=== PATIENT | female | born 1985 | race Caucasian/White ===

== ENCOUNTER 2017-01-20 21:30 | Emergency (ER) | payer OTHER ==
[2017-01-20 21:34] VITALS: BP 109/54; PULSE 79; TEMP 98; BMI 30.3
[2017-01-20] MEDS ORDERED: ACETAMINOPHEN 325 MG TABLET (FP) PO ONE (23:39)
--- NOTE | 2017-01-20 23:39 | PDOC ---
History of Present Illness <Anna Mckeon - Last Filed: 01/20/17 23:39> - History of Present Illness Initial Comments: 01/20/17 23:46 Patient is a 31 year old female with no significant medical hx who is presenting to the ED with a spider bite that occurred just prior to her arrival. The patient states she was at home in her basement when she witnessed a vargas spider the size of a nickel bite her between the web of her first and second digits of her left foot. Patient reports pain and swelling to the area. Denies rash, erythema, numbness, or itchiness. <Neha Joy - Last Filed: 01/20/17 23:51> - General Chief Complaint: Bite Stated Complaint: BITE Time Seen by Provider: 01/20/17 23:34 Past History - Past Medical History Other medical history: denies - Psycho/Social/Smoking Cessation Hx Suicidal Ideation: No Smoking Status: No Smoking History: Never smoked Number of Cigarettes Smoked Daily: 0 <Anna Mckeon - Last Filed: 01/20/17 23:39> <Neha Joy - Last Filed: 01/20/17 23:51> - Past Medical History Allergies/Adverse Reactions: Allergies Allergy/AdvReac Type Severity Reaction Status Date / Time No Known Allergies Allergy Verified 01/20/17 21:34 Home Medications: Ambulatory Orders Ciprofloxacin [Cipro -] 500 mg PO BID #10 tablet 12/08/11 Review of Systems - Review of Systems Comments:: 01/20/17 23:47 CONSTITUTIONAL: Absent: fever, no chills, no fatigue EYES: Absent: visual changes ENT: Absent: ear pain, no sore throat MUSKULOSKELETAL: Absent: back pain, no arthralgia, no myalgia SKIN: Present: spider bite with pain and swelling between first and second digits of left foot Absent: rash NEURO: Absent: headache <Neha Joy - Last Filed: 01/20/17 23:51> *Physical Exam - Vital Signs Last Vital Signs Temp Pulse Resp BP Pulse Ox 98 F 79 18 109/54 99 01/20/17 21:31 01/20/17 21:31 01/20/17 21:31 01/20/17 21:31 01/20/17 21:31 <Anna Mckeon - Last Filed: 01/20/17 23:39> - Vital Signs Last Vital Signs Temp Pulse Resp BP Pulse Ox 98 F 79 18 109/54 99 01/20/17 21:31 01/20/17 21:31 01/20/17 21:31 01/20/17 21:31 01/20/17 21:31 - Physical Exam Comments: 01/20/17 23:48 GENERAL: Well-appearing, well-nourished. No apparent distress. HEENT: Normocephalic, atraumatic. PERRL, EOM intact. EXTREMITIES: Normal ROM in all four extremities. No gross deformities. SKIN: Mild swelling between first and second digits of the left foot without any erythema or induration. No obvious breaking of skin. Warm, dry. No rash NEUROLOGICAL: No focal neurological deficits. <Neha Joy - Last Filed: 01/20/17 23:51> *DC/Admit/Observation/Transfer <Anna Mckeon - Last Filed: 01/20/17 23:39> - Attestations Scribe Attestion: 01/20/17 23:51 Documentation prepared by Neha Joy, acting as director medical science for Anna Mckeon MD. <Neha Joy - Last Filed: 01/20/17 23:51> Diagnosis at time of Disposition: Spider bite Qualifiers: Encounter type: initial encounter Injury intent: accidental or unintentional Qualified Code(s): T63.301A - Toxic effect of unspecified spider venom, accidental (unintentional), initial encounter - Patient Instructions Printed Discharge Instructions: DI for Insect Bites and Stings Additional Instructions: please keep foot elevated tonight apply ice to the area take tylenol for pain return for any signs of infection
[2017-01-20] MEDS ORDERED: ACETAMINOPHEN 325 MG TABLET (FP) ONE (23:52)
== END 2017-01-20 23:56 | disposition home or self-care (01) ==
LOC: JER 21:30 → JERFT 21:30 → JER 23:56
DX: T63.3 Toxic effect of venom of spider (principal); Y92.89 Other specified places as the place of occurrence of the external cause
CPT/HCPCS: 99281-25

== ENCOUNTER 2018-03-17 20:56 | Emergency (ER) | payer SELFPAY ==
[2018-03-17 21:06] VITALS: BP 108/80; PULSE 95; TEMP 98.1; BMI 29.2
--- NOTE | 2018-03-17 23:21 | PDOC ---
History of Present Illness - General History Source: Patient Exam Limitations: No Limitations - History of Present Illness Initial Comments: 03/17/18 23:20 Lorie is a 32 year old female with h/o PCOS who is getting fertility treatment from [facility] with Clomid c/o lower abd pain since yesterday. States the pain was 10/10 yesterday and could hardly stand up. Today he states the pain is 5/10, crampy type, with no alleviating or aggravating factors. She called her OBS in [place] and he instructed her to come to the ED to r/o ectopic. States she took a home test which was neg. Denies vaginal bleeding, n/v, dysuria. DIRECTOR OF RELIGIOUS LIFE: Dr. James. PMHX: as above PSOCHX: neg etoh, drugs, cig ALL: NKDA GENERAL/CONSTITUTIONAL: [No fever or chills. No weakness. No weight change.] HEAD, EYES, EARS, NOSE AND THROAT: [No change in vision. No ear pain or discharge. No sore throat.] CARDIOVASCULAR: [No chest pain or shortness of breath.] RESPIRATORY: [No cough, wheezing, or hemoptysis.] GASTROINTESTINAL: [No nausea, vomiting, diarrhea or constipation. No rectal bleeding.] GENITOURINARY: [No dysuria, frequency, or change in urination.] MUSCULOSKELETAL: [No joint or muscle swelling or pain. No neck or back pain.] SKIN AND BREASTS: [No rash or easy bruising.] NEUROLOGIC: [No headache, vertigo, loss of consciousness, or loss of sensation.] PSYCHIATRIC: [No depression or anxiety.] ENDOCRINE: [No increased thirst. No abnormal weight change.] HEMATOLOGIC/LYMPHATIC: [No anemia, easy bleeding, or history of blood clots.] ALLERGIC/IMMUNOLOGIC: [No hives or skin allergy. No latex allergy.] GENERAL: [The patient is awake, alert, and fully oriented, in no acute distress. ] HEAD: [Normal with no signs of trauma.] EYES: [Pupils equal, round and reactive to light, extraocular movements intact, sclera anicteric, conjunctiva clear.] ENT: [Ears normal, nares patent, oropharynx clear without exudates. Moist mucous membranes.] NECK: [Normal range of motion, supple without lymphadenopathy, JVD, or masses.] LUNGS: [Breath sounds equal, clear to auscultation bilaterally. No wheezes, and no crackles.] HEART: [Regular rate and rhythm, normal S1 and S2 without murmur, rub.] ABDOMEN: [Soft, mild tenderness lower abd, normoactive bowel sounds. No guarding, no rebound. No masses.] EXTREMITIES: [Normal range of motion, no edema. No clubbing or cyanosis. No cords, erythema, or tenderness.] NEUROLOGICAL: [Cranial nerves II through XII grossly intact. Normal speech, normal gait.] PSYCH: [Normal mood, normal affect.] SKIN: [Warm, Dry, normal turgor, no rashes or lesions noted.] 03/18/18 01:00 <Tee Scott - Last Filed: 03/18/18 01:28> <Johanna Anne - Last Filed: 03/18/18 04:30> - General Chief Complaint: Pain Stated Complaint: ABDOMINAL PAIN Past History - Past Medical History COPD: No Other medical history: PCOS - Reproductive History Polycystic Ovaries: Yes - Suicide/Smoking/Psychosocial Hx Smoking Status: No Smoking History: Never smoked Have you smoked in the past 12 months: No Number of Cigarettes Smoked Daily: 0 Information on smoking cessation initiated: No Hx Alcohol Use: No Drug/Substance Use Hx: No Substance Use Type: None <Tee Scott - Last Filed: 03/18/18 01:28> <Johanna Anne - Last Filed: 03/18/18 04:30> - Past Medical History Allergies/Adverse Reactions: Allergies Allergy/AdvReac Type Severity Reaction Status Date / Time No Known Allergies Allergy Verified 03/17/18 21:06 Home Medications: Ambulatory Orders Ciprofloxacin [Cipro -] 500 mg PO BID #10 tablet 12/08/11 Cephalexin Monohydrate [Keflex -] 500 mg PO BID #14 capsule 01/27/18 Naproxen [Naprosyn -] 500 mg PO BID #14 tablet 01/27/18 Naproxen [Naprosyn -] 500 mg PO BID PRN #14 tablet 01/27/18 Nitrofurantoin Monohyd/M-Cryst [Macrobid -] 100 mg PO BID #14 capsule 03/18/18 *Physical Exam - Vital Signs Last Vital Signs Temp Pulse Resp BP Pulse Ox 98.1 F 95 H 18 108/80 100 03/17/18 21:04 03/17/18 21:04 03/17/18 21:04 03/17/18 21:04 03/17/18 21:04 <HaasCecileTee - Last Filed: 03/18/18 01:28> - Vital Signs Last Vital Signs Temp Pulse Resp BP Pulse Ox 98.1 F 95 H 18 108/80 100 03/17/18 21:04 03/17/18 21:04 03/17/18 21:04 03/17/18 21:04 03/17/18 21:04 <Johanna Anne - Last Filed: 03/18/18 04:30> ED Treatment Course - ADDITIONAL ORDERS Additional order review: Laboratory Results 03/17/18 03/17/18 23:55 23:23 Beta HCG, Quant < 1.0 Urine Color Yellow Urine Appearance Slcloudy Urine pH 6.0 Ur Specific Buena 1.023 Urine Protein Negative Urine Glucose (UA) Negative Urine Ketones Negative Urine Blood Negative Urine Nitrite Positive Urine Bilirubin Negative Urine Urobilinogen Negative Ur Leukocyte Esterase Trace Urine WBC (Auto) 5 Urine RBC (Auto) <1 Ur Epithelial Cells Few Urine Bacteria Few Urine Mucus Rare Urine HCG, Qual Negative <Johanna Anne - Last Filed: 03/18/18 04:30> Medical Decision Making - Medical Decision Making 03/17/18 23:20 Lorie is a 32 year old female with h/o PCOS who is getting fertility treatment from [facility] with Clomid c/o lower abd pain since yesterday. Patient lmp was 02/12/18, no VB, n/v. Symptoms consistent with premenstural cramping but will r/o ectopic. beta hcg ua hCG negative 03/18/18 01:03 Laboratory Tests 03/17/18 23:23 Urine Color Yellow Urine Appearance Slcloudy Urine pH 6.0 Ur Specific Buena 1.023 Urine Protein Negative Urine Glucose (UA) Negative Urine Ketones Negative Urine Blood Negative Urine Nitrite Positive Urine Bilirubin Negative Urine Urobilinogen Negative Ur Leukocyte Esterase Trace Urine WBC (Auto) 5 Urine RBC (Auto) <1 Ur Epithelial Cells Few Urine Bacteria Few Urine Mucus Rare Urine HCG, Qual Negative urine noted with Nitrite will give macrobid I discussed the physical exam findings, ancillary test results and final diagnoses with the patient. I answered all of the patient's questions. The patient was satisfied with the care received and felt comfortable with the discharge plan and treatment plan. The Patient agrees to follow up with the primary care physician within 24-72 hours. <HaasCecileTee - Last Filed: 03/18/18 01:28> - Medical Decision Making 03/18/18 00:42 The patient was seen and evaluated in conjunction with midlevel provider under my direct supervision, ancillary studies were reviewed. I agree with the plan as outlined by DENG Haas. 32 YOF with PCOS presenting with VB. reviewed results, on clomid, preg test neg. likely menses. no signs of infection on UA. agree with plan for DC, stable condition <AnneJohannavandana Lynyulia - Last Filed: 03/18/18 04:30> *DC/Admit/Observation/Transfer <Rishabh Scott - Last Filed: 03/18/18 01:28> <Johanna Anneyulia - Last Filed: 03/18/18 04:30> Diagnosis at time of Disposition: UTI (urinary tract infection) Qualifiers: Urinary tract infection type: site unspecified Hematuria presence: without hematuria Qualified Code(s): N39.0 - Urinary tract infection, site not specified Abdominal pain Qualifiers: Abdominal location: lower abdomen, unspecified Qualified Code(s): R10.30 - Lower abdominal pain, unspecified - Discharge Dispostion Disposition: HOME Condition at time of disposition: Stable - Prescriptions Prescriptions: Nitrofurantoin Monohyd/M-Cryst [Macrobid -] 100 mg PO BID #14 capsule - Patient Instructions Printed Discharge Instructions: DI for Urinary Tract Infection (UTI), DI for Abdominal Pain-Adult Additional Instructions: Your Discharge Instructions: You must call primary care physician within 24 hours to arrange follow-up. Return to the Emergency Department with any new, persistent or worsening symptoms, for fever, chills, SOB, dizziness or any other concerning changes that may occur.
[2018-03-17 23:36] LABS: HCG,QUALITATIVE URINE Negative
[2018-03-17 23:41] LABS: URINE APPEARANCE SLCLOUDY; URINE BILIRUBIN NEGATIVE (<2.0 mg/dL); URINE COLOR YELLOW; URINE GLUCOSE (UA) NEGATIVE (NEGATIVE); URINE KETONE NEGATIVE (NEGATIVE); URINE LEUK ESTERASE TRACE (NEGATIVE); URINE NITRITE POSITIVE (NEGATIVE); URINE PROTEIN NEGATIVE (NEGATIVE); URINE UROBILINOGEN NEGATIVE mg/dL (0.2-1.0)
[2018-03-17 23:52] LABS: EPI CELLS FEW /HPF (FEW); URINE BACTERIA FEW /hpf (NONE SEEN); URINE MUCUS RARE
[2018-03-18] MEDS ORDERED: NITROFURANTOIN MACROCRYSTAL 50 MG CAPSULE (FP) ONE (01:10)
[2018-03-18] MEDS ORDERED: NITROFURANTOIN MACROCRYSTAL 50 MG CAPSULE (FP) PO SCH (01:15)
== END 2018-03-18 01:31 | disposition home or self-care (01) ==
LOC: JER 20:56
DX: N39.0 Urinary tract infection, site not specified (principal); B96.89 Other specified bacterial agents as the cause of diseases classified elsewhere; E28.2 Polycystic ovarian syndrome
CPT/HCPCS: 36415; 81003; 81015; 84702; 84703; 87086; 87186; 99281-25

== ENCOUNTER 2019-05-27 07:54 | Emergency (ER) | payer OTHER ==
[2019-05-27 07:59] VITALS: BP 98/50; PULSE 78; TEMP 98.2; BMI 28.2
[2019-05-27] MEDS ORDERED: SODIUM CHLORIDE 0.9% 1000 ML INFUS.BAG IV ONE (08:57)
--- NOTE | 2019-05-27 09:02 | PDOC ---
Documentation entered by Kane Walden SCRIBE, acting as scribe for Yolanda Moscoso MD. Yolanda Moscoso MD: This documentation has been prepared by the Iram ferraro Xhesika, SCRIBE, under my direction and personally reviewed by me in its entirety. I confirm that the documentation accurately reflects all work, treatment, procedures, and medical decision making performed by me. History of Present Illness - General Chief Complaint: Pain Stated Complaint: L SIDED ABD PAIN Time Seen by Provider: 05/27/19 08:43 History Source: Patient Exam Limitations: No Limitations - History of Present Illness Initial Comments: 05/27/19 08:55 The patient is a 33 year old female with a significant PMH of PCOS who presents to the emergency department for LLQ abdominal pain x 4days, progressively getting worse. Pt describes the pain as intermittent, sharp, occurring frequently, relieved when lying on her L side and walking, worsened with lying flat on her back. Patient notes she got an abdominoplasty 10/2018 in the [place]. Patient notes her LMP was 2 weeks ago. Patient denies dysuria, frequency, urgency and hematuria. Patient denies any vaginal bleeding or discharge. Denies fever, chills, cough, nausea, vomiting, diarrhea and constipation. Allergies: NKDA Past History - Past Medical History Allergies/Adverse Reactions: Allergies Allergy/AdvReac Type Severity Reaction Status Date / Time No Known Allergies Allergy Verified 05/27/19 07:58 Home Medications: Ambulatory Orders Ciprofloxacin [Cipro -] 500 mg PO BID #10 tablet 12/08/11 Cephalexin Monohydrate [Keflex -] 500 mg PO BID #14 capsule 01/27/18 Naproxen [Naprosyn -] 500 mg PO BID #14 tablet 01/27/18 Naproxen [Naprosyn -] 500 mg PO BID PRN #14 tablet 01/27/18 Nitrofurantoin Monohyd/M-Cryst [Macrobid -] 100 mg PO BID #14 capsule 03/18/18 COPD: No HTN: (hypotension) Other medical history: PCOS - Surgical History Abdominal Surgery: Yes (JAVON SANDOVAL 10/2018) - Reproductive History Polycystic Ovaries: Yes - Psycho Social/Smoking Cessation Hx Smoking Status: No Smoking History: Never smoked Have you smoked in the past 12 months: No Number of Cigarettes Smoked Daily: 0 Information on smoking cessation initiated: No Hx Alcohol Use: No Drug/Substance Use Hx: No Substance Use Type: None Review of Systems - Review of Systems Able to Perform ROS?: Yes Comments:: 05/27/19 08:55 GENERAL/CONSTITUTIONAL: No fever or chills. No weakness. HEAD, EYES, EARS, NOSE AND THROAT: No change in vision. No ear pain or discharge. No sore throat. CARDIOVASCULAR: No chest pain or shortness of breath. RESPIRATORY: No cough, wheezing, or hemoptysis. GASTROINTESTINAL: No nausea, vomiting, diarrhea or constipation. GENITOURINARY: No dysuria, frequency, or change in urination. MUSCULOSKELETAL: +LLQ abdominal pain. No joint or muscle swelling. No neck or back pain. SKIN: No rash NEUROLOGIC: No headache, vertigo, loss of consciousness, or change in strength/ sensation. ENDOCRINE: No increased thirst. No abnormal weight change. HEMATOLOGIC/LYMPHATIC: No anemia, easy bleeding, or history of blood clots. ALLERGIC/IMMUNOLOGIC: No hives or skin allergy. *Physical Exam - Vital Signs Last Vital Signs Temp Pulse Resp BP Pulse Ox 98.2 F 78 18 98/50 L 100 05/27/19 07:56 05/27/19 07:56 05/27/19 07:56 05/27/19 07:56 05/27/19 07:56 - Physical Exam Comments: 05/27/19 09:12 Awake alert no acute distress lungs are clear bilaterally heart is regular without murmurs rubs or gallops abdomen is soft there is mild left lower quadrant tenderness no rebound no guarding patient does have a previous abdominoplasty scar there is a small hard area at the left lateral aspect inferior to the incision no palpable fluctuance no erythema no redness no signs of infection exam there is scant white discharge in the vaginal vault no CMT on bimanual exam there is mild left adnexal tenderness no palpable adnexal fullness or mass extremities are warm well perfused patient is neurologically awake alert and oriented x3 ED Treatment Course - LABORATORY CBC & Chemistry Diagram: 05/27/19 09:03 05/27/19 09:03 - RADIOLOGY Radiology Studies Ordered: Category Date Time Status TRANSVAGINAL ULTRASOUND US [US] Stat Ultrasound 05/27/19 08:56 Ordered Medical Decision Making - Medical Decision Making 05/27/19 09:00 33-year-old female history of PCOS here today complaining of left lower quadrant pain. Patient states is intermittent pain over the last 4 days however today became more constant and more severe pain is relieved by lying on her left side worse with lying flat on her back also improved with getting up and walking around denies any urinary symptoms no vaginal discharge he has had history of similar pain with cyst ruptures in the past however not this severe no fevers no chills no nausea vomiting no other current complaints LOT TECHNICIAN is Dr. James patient currently takes metformin for her PCO S but no OCPs last period was 2 weeks ago On my exam patient has mild left lower quadrant tenderness and left adnexal tenderness on exam. Scant white discharge on the vaginal vault no CMT. Differential includes large ovarian cyst, ovarian torsion, hemorrhagic or ruptured ovarian cyst diverticulitis less likely. Plan TVUS UA pending ultrasound results will consider CT if nondiagnostic 05/27/19 14:02 Patient's ultrasound shows small follicular cysts bilaterally no free fluid. Labs are unremarkable UA is negative for infection. Reviewed findings with the patient she states overall her pain is improved we discussed the possibility doing CAT scan to rule out other causes such as diverticulitis or renal colic. Due to the fact that she is nontender currently and symptoms are improved she would like to go home given her warning signs which should prompt repeat evaluation in the ED told to follow-up with her auto brake technician within 1 to 2 weeks declined pain medication as she was offered Motrin Discharge - Discharge Information Problems reviewed: Yes Clinical Impression/Diagnosis: Abdominal pain Condition: Improved Disposition: HOME - Admission No - Follow up/Referral - Patient Discharge Instructions Patient Printed Discharge Instructions: Polycystic Ovary Syndrome (Alternative Therapy) Additional Instructions: Your urine test today was negative for any infection. Your ovarian ultrasound shows small cysts on bilateral ovaries but no sign of twisting or rupture of any cyst. Return for any vomiting fever severe or worsening pain or any concerns. Follow-up with your auto brake technician please call to schedule appointment to be seen within 1 to 2 weeks - Post Discharge Activity
[2019-05-27 09:27] LABS: EOS % 4.3 % (0-4.5); HEMATOCRIT 37.2 % (32.4-45.2); HEMOGLOBIN 12.3 GM/dL (10.7-15.3); LYMPH % 23.9 % (8-40); MCH 27.4 pg (25.7-33.7); MCHC 33.1 g/dl (32.0-36.0); MEAN CELL VOLUME 82.8 fl (80-96); MEAN PLT VOLUME 8.3 fl (7.5-11.1); MONO % 6.2 % (3.8-10.2); NEUT % 64.6 % (42.8-82.8); PLATELET COUNT 320 K/MM3 (134-434); RBC 4.49 M/mm3 (3.60-5.2); RDW 16.9 % (11.6-15.6); WHITE BLOOD COUNT 8.9 K/mm3 (4.0-10.0)
[2019-05-27 10:02] LABS: ALBUMIN 3.4 g/dl (3.4-5.0); BILIRUBIN,TOTAL 0.5 mg/dL (0.2-1); BLOOD UREA NITROGEN 11.4 mg/dL (7-18); CALCIUM 8.5 mg/dL (8.5-10.1); CREATININE 0.5 mg/dL (0.55-1.3); POTASSIUM 4.6 mmol/L (3.5-5.1); TOT PROT 7.1 g/dl (6.4-8.2)
[2019-05-27 13:43] LABS: PH,URINE 5.5 (5.0-8.0); URINE APPEARANCE CLEAR; URINE BILIRUBIN NEGATIVE (NEGATIVE); URINE COLOR YELLOW; URINE GLUCOSE (UA) NEGATIVE (NEGATIVE); URINE KETONE NEGATIVE (NEGATIVE); URINE LEUK ESTERASE NEGATIVE (NEGATIVE); URINE NITRITE NEGATIVE (NEGATIVE); URINE PROTEIN NEGATIVE (NEGATIVE); URINE UROBILINOGEN 0.2 mg/dL (0.2-1.0)
== END 2019-05-27 14:15 | disposition home or self-care (01) ==
LOC: JER 07:54
DX: R10.9 Unspecified abdominal pain (principal); E28.2 Polycystic ovarian syndrome; E03.9 Hypothyroidism, unspecified; Z98.890 Other specified postprocedural states
CPT/HCPCS: 36415; 76830-TC; 80053; 81003; 84703; 85025; 99282-25

== ENCOUNTER 2021-12-07 07:46 | Emergency (ER) | payer OTHER ==
[2021-12-07 08:03] VITALS: BMI 30.3
[2021-12-07] MEDS ORDERED: ACETAMINOPHEN 1000 MG/100 ML BAG IVPB ONE (08:33)
[2021-12-07] MEDS ORDERED: SODIUM CHLORIDE 0.9% 500 ML INFUS.BAG IV ONE (08:33)
[2021-12-07] MEDS ORDERED: ACETAMINOPHEN INJECTION 100 ML IVPB ONE (08:42)
[2021-12-07 09:05] LABS: EOS % 6.5 % (0-4.5); HEMATOCRIT 37.4 % (32.4-45.2); HEMOGLOBIN 12.3 GM/dL (10.7-15.3); LYMPH % 23.5 % (8-40); MCH 27.5 pg (25.7-33.7); MCHC 32.9 g/dl (32.0-36.0); MEAN CELL VOLUME 83.4 fl (80-96); MEAN PLT VOLUME 8.5 fl (7.5-11.1); PLATELET COUNT 314 10^3/uL (134-434); RBC 4.48 M/mm3 (3.60-5.2); RDW 14.5 % (11.6-15.6); WHITE BLOOD COUNT 11.3 K/mm3 (4.0-10.0)
[2021-12-07 09:18] LABS: HCG,QUALITATIVE URINE Positive
[2021-12-07 09:19] LABS: EPI CELLS 14 /uL (0-25.1); HYALINE CASTS 1 /uL (0-3.1); URINE APPEARANCE CLOUDY; URINE BACTERIA 6897 /uL (0-1359); URINE BILIRUBIN NEGATIVE (NEGATIVE); URINE COLOR YELLOW; URINE GLUCOSE (UA) NEGATIVE (NEGATIVE); URINE KETONE NEGATIVE (NEGATIVE); URINE LEUK ESTERASE 1+ (NEGATIVE); URINE NITRITE POSITIVE (NEGATIVE); URINE PROTEIN 3+ (NEGATIVE); URINE RBC 53 /uL (0-23.9); URINE UROBILINOGEN 0.2 mg/dL (0.2-1.0); URINE WBC 1101 /uL (0-25.8)
[2021-12-07 09:31] LABS: ALBUMIN 3.5 g/dl (3.4-5.0); BLOOD UREA NITROGEN 13.2 mg/dL (7-18); CALCIUM 8.6 mg/dL (8.5-10.1)
[2021-12-07 09:34] LABS: CREATININE 0.5 mg/dL (0.55-1.3)
[2021-12-07 09:36] LABS: BILIRUBIN,TOTAL 0.6 mg/dL (0.2-1); TOT PROT 7.2 g/dl (6.4-8.2)
[2021-12-07 10:40] VITALS: BP 99/58; PULSE 64; TEMP 98.6
== END 2021-12-07 12:20 | disposition home or self-care (01) ==
LOC: JER 07:46
PROC: 3E0333Z Introduction of Anti-inflammatory into Peripheral Vein, Percutaneous Approach (ICD-10-PCS; principal; 2021-12-07)
DX: O23.41 Unspecified infection of urinary tract in pregnancy, first trimester (principal); Z3A.01 Less than 8 weeks gestation of pregnancy
CPT/HCPCS: 36415; 76817-TC; 80053; 81003; 84702; 84703; 85025; 86850; 86900; 86901; 87070; 87086; 87186; 87205; 99284-25

== ENCOUNTER 2021-12-09 09:42 | Emergency (ER) | payer OTHER ==
[2021-12-09 09:57] VITALS: BP 105/60; PULSE 97; TEMP 98.8; BMI 28.8
== END 2021-12-09 14:59 | disposition home or self-care (01) ==
LOC: JERFT 09:42
DX: Z3A.01 Less than 8 weeks gestation of pregnancy (principal)
CPT/HCPCS: 36415; 76817-TC; 84702; 99284-25

== ENCOUNTER 2023-03-15 09:08 | Emergency (ER) | payer OTHER ==
[2023-03-15 09:15] VITALS: BP 107/69; PULSE 98; RESP 18; TEMP 98.1; BMI 28.0
[2023-03-15 10:01] LABS: HCG,QUALITATIVE URINE Positive
[2023-03-15 10:22] LABS: EPI CELLS >36 /uL (0-25.1); HYALINE CASTS 58 /uL (0-3.1); PH,URINE 6.5 (5.0-8.0); URINE APPEARANCE CLOUDY; URINE BACTERIA >9,000 /uL (0-1359); URINE BILIRUBIN NEGATIVE (NEGATIVE); URINE COLOR YELLOW; URINE GLUCOSE (UA) NEGATIVE (NEGATIVE); URINE KETONE NEGATIVE (NEGATIVE); URINE LEUK ESTERASE 3+ (NEGATIVE); URINE NITRITE POSITIVE (NEGATIVE); URINE PROTEIN 1+ (NEGATIVE); URINE RBC 26 /uL (0-23.9); URINE UROBILINOGEN 0.2 mg/dL (0.2-1.0); URINE WBC 829 /uL (0-25.8)
[2023-03-15 10:48] LABS: BASO % 0.6 % (0-2.0); EOS % 2.9 % (0-4.5); HEMATOCRIT 30.9 % (32.4-45.2); HEMOGLOBIN 10.2 GM/dL (10.7-15.3); LYMPH % 19.2 % (8-40); MCH 25.5 pg (25.7-33.7); MCHC 32.9 g/dl (32.0-36.0); MEAN CELL VOLUME 77.6 fl (80-96); MEAN PLT VOLUME 7.7 fl (7.5-11.1); MONO % 9.6 % (3.8-10.2); NEUT % 67.7 % (42.8-82.8); PLATELET COUNT 328 10^3/uL (134-434); RBC 3.99 M/mm3 (3.60-5.2); RDW 14.9 % (11.6-15.6); WHITE BLOOD COUNT 8.7 K/mm3 (4.0-10.0)
[2023-03-15 11:07] LABS: POTASSIUM 3.9 mmol/L (3.5-5.1)
[2023-03-15 11:10] LABS: BLOOD UREA NITROGEN 5.7 mg/dL (7-18); CALCIUM 8.4 mg/dL (8.5-10.1)
[2023-03-15 11:13] LABS: CREATININE 0.4 mg/dL (0.55-1.3)
== END 2023-03-15 11:50 | disposition home or self-care (01) ==
LOC: JER 09:08
DX: O26.892 Other specified pregnancy related conditions, second trimester (principal); O23.42 Unspecified infection of urinary tract in pregnancy, second trimester; R10.2 Pelvic and perineal pain; N39.0 Urinary tract infection, site not specified; Z3A.19 19 weeks gestation of pregnancy
CPT/HCPCS: 36415; 76801-TC; 80048; 81003; 84702; 84703; 85025; 86850; 86900; 86901; 87086; 87186; 99284-25

== ENCOUNTER 2023-07-08 14:52 | Emergency (ER) | payer OTHER ==
[2023-07-08 14:59] VITALS: BP 113/55; PULSE 80; RESP 18; TEMP 97.9; BMI 28.3
[2023-07-08] MEDS ORDERED: KETOROLAC TROMETHAMINE 30 MG/1 ML VIAL IM ONE (15:15)
[2023-07-08] MEDS ORDERED: KETOROLAC TROMETHAMINE 30 MG/1 ML VIAL ONE (15:17)
[2023-07-08 15:52] LABS: THROAT:GRP A STREP NOT DETECTED (NOTDETECTED)
== END 2023-07-08 16:40 | disposition home or self-care (01) ==
LOC: JERFT 14:52
PROC: 3E0233Z Introduction of Anti-inflammatory into Muscle, Percutaneous Approach (ICD-10-PCS; principal; 2023-07-08)
DX: H92.01 Otalgia, right ear (principal); H93.11 Tinnitus, right ear; R51.9 Headache, unspecified; R09.81 Nasal congestion; J01.90 Acute sinusitis, unspecified; J02.9 Acute pharyngitis, unspecified; H69.93 Unspecified Eustachian tube disorder, bilateral; G44.209 Tension-type headache, unspecified, not intractable; Z20.822 Contact with and (suspected) exposure to COVID-19
CPT/HCPCS: 0241U-QW; 87651; 99284-25

== ENCOUNTER 2024-12-12 14:38 | Emergency (ER) | payer OTHER ==
[2024-12-12 14:46] VITALS: PULSE 78; RESP 20; TEMP 98.2; BMI 29.5
[2024-12-12] MEDS ORDERED: MAG HYDROX/AL HYDROX/SIMETH 30 ML UNIT-DOSE CUP ONE (15:20)
[2024-12-12] MEDS ORDERED: FAMOTIDINE 20 MG/50 ML IVPB 20 MG/50 ML MG IVPB ONE (15:20)
[2024-12-12] MEDS ORDERED: ONDANSETRON 4 MG/2 ML VIAL ONE (15:20)
[2024-12-12] MEDS: MAG HYDROX/AL HYDROX/SIMETH 30 ML UNIT-DOSE CUP PO ONE (15:35)
[2024-12-12] MEDS: ONDANSETRON 4 MG/2 ML VIAL IVPUSH ONE (15:35)
[2024-12-12] MEDS: FAMOTIDINE 20 MG/50 ML IVPB 20 MG/50 ML MG IVPB ONE (15:35)
[2024-12-12] MEDS: SODIUM CHLORIDE 0.9% 500 ML INFUS.BAG IV ONE (15:35)
[2024-12-12 15:55] LABS: ABSOLUTE IMMATURE GRANULOCYTES 0.05 x10^3/uL (0.0-0.031); BASOPHILS # 0.06 x10^3/uL (0.01-0.08); EOSINOPHIL % 1.9 % (0.7-5.8); EOSINOPHILS # 0.24 x10^3/uL (0.04-0.36); MCHC 30.8 g/dl (32.2-35.5); MEAN CELL VOLUME 79.4 fl (79.4-94.8); MEAN PLT VOLUME 10.4 fl (9.4-12.3); MONOCYTE # 0.57 x10^3/uL (0.24-0.86); MONOCYTE % 4.4 % (4.7-12.5); PLATELET COUNT 313 x10^3/uL (182-369); RDW 16.4 % (12.1-16.8)
[2024-12-12 16:22] LABS: CALCIUM 9.3 mg/dL (8.5-10.1)
[2024-12-12 16:23] LABS: ALBUMIN 3.7 g/dl (3.4-5.0); BLOOD UREA NITROGEN 13.2 mg/dL (7-18); MAGNESIUM 2.2 mg/dL (1.8-2.4)
[2024-12-12 16:26] LABS: CREATININE 0.7 mg/dL (0.55-1.3)
[2024-12-12 16:27] LABS: BILIRUBIN,TOTAL 0.5 mg/dL (0.2-1); TOT PROT 7.6 g/dl (6.4-8.2)
[2024-12-12 18:26] VITALS: BP 113/70
== END 2024-12-12 18:28 | disposition home or self-care (01) ==
LOC: JER 14:38
PROC: 3E033GC Introduction of Other Therapeutic Substance into Peripheral Vein, Percutaneous Approach (ICD-10-PCS; principal; 2024-12-12)
PROC: 3E033GC Introduction of Other Therapeutic Substance into Peripheral Vein, Percutaneous Approach (ICD-10-PCS; 2024-12-12)
DX: K80.20 Calculus of gallbladder without cholecystitis without obstruction (principal); R10.13 Epigastric pain; R11.2 Nausea with vomiting, unspecified
CPT/HCPCS: 0241U-QW; 36415; 76705-TC; 80053; 83690; 83735; 84703; 85025; 99285-25